=== PATIENT | female | born 1980 | race African-American/Black ===

== ENCOUNTER 2017-11-08 15:09 | Emergency (ER) | payer SELFPAY ==
[~2017-11-08] VITALS: Ht 175.3 cm; Wt 132.0 kg
[~2017-11-08 15:09] MED LIST: IBUP-238 PO; IBUP800T23 PO
[2017-11-08 15:17] VITALS: BP 122/71; PULSE 68; RESP 16; TEMP 98.9; O2SAT 99
--- NOTE | 2017-11-08 15:45 | PD ---
HPI Chief Complaint: Pain: Acute or Chronic Time Seen by Provider: 15:40 Travel History International Travel<30 days: No Contact w/Intl Traveler<30days: No Traveled to known affect area: No History of Present Illness HPI This is a 37-year-old female who presents for evaluation of bilateral leg pain. Symptoms started 1 week ago. She describes it as a crampy/sharp pain in the posterior aspect of both calves and thighs. Pain is constant but worse when walking. She tried using [id number] Tylenol with pain persisted which prompted evaluation. She does not recall any injury. Denies any recent travel or recent surgery. Denies any leg pain, abdominal pain. She does report a history of "arthritis" in both knees. She has no other complaints at this time. [facility] Past Medical History Diminished Hearing: No Musculoskeletal: Yes (ARTHRITIS BILATERAL KNEES) Immunizations Current: No Tetanus Vaccination: Unknown Influenza Vaccination: No ?: Unknown LMP: 10/06/2017 : 1 Para: 1 Past Surgical History Cholecystectomy: Yes (STATES GALLSTONES REMOVED) Social History Alcohol Use: No Tobacco Use: No Substance Use: No Allergies-Medications (Allergen,Severity, Reaction): Coded Allergies: No Known Allergies (Verified Adverse Reaction, Unknown, 11/08/17) Reported Meds & Prescriptions Reported Meds & Active Scripts Active Ibuprofen 800 Mg Tab 800 Mg PO Q6HR PRN Baclofen 10 Mg Tab 10 Mg PO Q8HR 10 Days Review of Systems Except as stated in HPI: all other systems reviewed are Neg Physical Exam Narrative GENERAL: Well-developed well-nourished female in no acute distress SKIN: Warm and dry. HEAD: Atraumatic. Normocephalic. EYES: Pupils equal and round. No scleral icterus. No injection or drainage. ENT: No nasal bleeding or discharge. Mucous membranes pink and moist. NECK: Trachea midline. No JVD. CARDIOVASCULAR: Regular rate and rhythm. No murmur appreciated. RESPIRATORY: No accessory muscle use. Clear to auscultation. Breath sounds equal bilaterally. GASTROINTESTINAL: Abdomen soft, non-tender, nondistended. Hepatic and splenic margins not palpable. MUSCULOSKELETAL: No obvious deformities. There is no tenderness to palpation to the calves bilaterally. There is some pain with dorsiflexion at the ankles against resistance. There is no lower extremity edema. No palpable abnormalities. 2+ dorsalis pedis and posterior tibial pulses. NEUROLOGICAL: Awake and alert. No obvious cranial nerve deficits. Motor grossly within normal limits. Normal speech. PSYCHIATRIC: Appropriate mood and affect; insight and judgment normal. Data Data Last Documented VS Vital Signs Date Time Temp Pulse Resp B/P (MAP) Pulse Ox O2 Delivery O2 Flow Rate FiO2 11/08/17 15:17 98.9 68 16 122/71 (88) 99 Orders Orders Us Leg Venous Doppler Bilat (11/08/17 15:43) Basic Metabolic Panel (Bmp) (11/08/17 15:46) Creatine Kinase (Cpk) (11/08/17 15:46) Magnesium (Mg) (11/08/17 15:46) Ketorolac Inj (Toradol Inj) (11/08/17 18:15) Orphenadrine Inj (Norflex Inj) (11/08/17 18:15) Ed Discharge Order (11/08/17 18:09) Labs Laboratory Tests Test 11/08/17 16:00 Blood Urea Nitrogen 13 MG/DL Creatinine 0.75 MG/DL Random Glucose 99 MG/DL Calcium Level 8.8 MG/DL Magnesium Level 1.8 MG/DL Sodium Level 138 MEQ/L Potassium Level 4.1 MEQ/L Chloride Level 106 MEQ/L Carbon Dioxide Level 26.8 MEQ/L Anion Gap 5 MEQ/L Estimat Glomerular Filtration Rate 106 ML/MIN Total Creatine Kinase 165 U/L MDM Medical Decision Making Medical Screen Exam Complete: Yes Emergency Medical Condition: Yes Medical Record Reviewed: Yes Differential Diagnosis Muscle strain, muscle cramp, DVT, peripheral neuropathy, radiculopathy, intermittent claudication Narrative Course 37-year-old female has been expressing a crampy pain in the muscle groups of the upper and lower legs. Physical examination is unremarkable. Bilateral ultrasound was performed revealing no acute abnormalities. Lab work was performed revealing no acute abnormalities. I suspect that the patient is experiencing muscle cramps. She'll be discharged with a short course of NSAIDs and muscle relaxants. Recommend outpatient follow-up with primary care physician. Diagnosis Primary Impression: Muscle cramps Departure Forms: Tests/Procedures, Work Release Enter return to work date: Nov 10, 2017 Additional Instructions: Medication as needed. Take ibuprofen with meals. Do not drive or drink alcohol when taking baclofen. Follow up with primary care physician in one to 2 weeks. Return for any emergent medical conditions. Med/Other Pt SpecificInfo: Prescription(s) given Scripts Ibuprofen (Ibuprofen) 800 Mg Tab 800 MG PO Q6HR Y for PAIN, #40 TAB 0 Refills Prov: Gunjan Liriano MD 11/08/17 Baclofen (Baclofen) 10 Mg Tab 10 MG PO Q8HR for 10 Days, TAB 0 Refills Prov: Gunjan Liriano MD 11/08/17 Disposition: 01 DISCHARGE HOME Condition: Stable Binh Lorenz Nov 08, 2017 15:45
[2017-11-08 17:19] LABS: CALCIUM 8.8 MG/DL (8.5-10.1); CREATININE 0.75 MG/DL (0.50-1.00)
[2017-11-08 17:20] LABS: BICARBONATE 26.8 MEQ/L (21.0-32.0); MAGNESIUM 1.8 MG/DL (1.5-2.5)
--- NOTE | 2017-11-08 17:46 | RADRPT ---
EXAM DATE/TIME: 11/08/2017 17:22 [facility] COMPARISON: No previous studies available for comparison. INDICATIONS : Bilateral leg pain. MEDICAL HISTORY : Arthritis. SURGICAL HISTORY : Cholecystectomy. ENCOUNTER: Subsequent ACUITY: 4 - 6 days PAIN SCORE: 6/10 LOCATION: Bilateral leg. TECHNIQUE: Venous ultrasound of the left and right leg was performed from the inguinal ligament to the proximal calf. Real-time, color Doppler and spectral tracing, compression and augmentation techniques were us ed. FINDINGS: RIGHT LEG: There is normal compressibility of the deep venous system from the inguinal region to the proximal ca lf. No echogenic clot is seen in the lumen of the common femoral, femoral, popliteal, and posterior tibial veins. There is a normal response of the venous system to proximal and distal augmentation an d respiration. LEFT LEG: There is normal compressibility of the deep venous system from the inguinal region to the proximal ca lf. No echogenic clot is seen in the lumen of the common femoral, femoral, popliteal, and posterior tibial veins. There is a normal response of the venous system to proximal and distal augmentation an d respiration. CONCLUSION: Normal examination. Jarad Franks MD on November 08, 2017 at 17:43 Board Certified Radiologist. This report was verified electronically.
[2017-11-08] MEDS ORDERED: BACL10TA PO (18:09)
[2017-11-08] MEDS ORDERED: IBUP1TAB7 PO (18:09)
[2017-11-08] MEDS ORDERED: KETOROLAC TROMETHAMINE 60 MG/2 ML (IM) VIAL IM ONE (18:15)
[2017-11-08] MEDS ORDERED: ORPHENADRINE INJ 60 MG/2 ML AMP IM ONE (18:15)
== END 2017-11-08 18:44 | disposition home or self-care (01) ==
LOC: PHEFT 15:09
DX: R25.2 Cramp and spasm (principal); M79.604 Pain in right leg; M79.605 Pain in left leg; M17.0 Bilateral primary osteoarthritis of knee
CPT/HCPCS: 80048; 82550; 83735; 93970; 96372; 99284; J1885; J2360